=== PATIENT | male | born 1945 | race Caucasian/White ===

== ENCOUNTER 2018-06-06 08:50 | Day surgery (SDC) | payer OTHER, BC ==
[2018-06-06] MEDS ORDERED: NA CHLORIDE 0.9% 1,000 ML ONE (09:21)
[2018-06-06] MEDS ORDERED: FENTANYL CITR 100 MCG/2 ML ONE (10:02)
[2018-06-06] MEDS ORDERED: MIDAZOLAM HCL 2 MG/2 ML INJ ONE (10:02)
[2018-06-06] MEDS ORDERED: NALOXONE 0.4 MG/ML VIAL ONE (10:03)
[2018-06-06] MEDS ORDERED: FLUMAZENIL 0.1 MG/ML (5 mL VIAL) IV ONE (10:03)
--- NOTE | 2018-06-06 11:24 | RAD REPORT ---
EXAM DESCRIPTION: CT - Abdomen Wo Contrast CLINICAL HISTORY: KIDNEY DISEASE Abdominal pain COMPARISON: Renal Ultrasound-Complete dated 04/05/[address] scans are performed using dose optimization technique as appropriate and may includ e automated exposure control or mA/KV adjustment according to patient size. FINDINGS: The patient was referred for CT-guided renal biopsy. Informed consent was obtained and yasmany e-out was performed. The patient was placed on the CT gantry and pre-procedure imaging demonstrated a suitable window to access the cortex of the left kidney inferiorly. However, the patient's blood pre ssure was noted to be elevated at 200+ systolic. Due to this, the procedure was deferred under better blood pressure control could be obtained. The lower lung jin are clear. Noncontrast assessment of the included portions of the liver parench yma demonstrates no mass or biliary dilatation. Cholelithiasis. The spleen and adrenal glands are nor mal. The right kidney is quite atrophic. The left kidney is mildly hypertrophic with a prominent cyst in t he inferior pole measuring 4 cm. The pancreas shows no evidence of ductal dilatation or mass. No bulky intra- abdominal adenopathy or free fluid collections. Aortic atherosclerosis is seen. No lytic or blastic bone lesion. Small fat co ntaining umbilical hernia. No worrisome bone finding. IMPRESSION: Pre-procedure planning CT was performed for left renal nonfocal biopsy. As detailed abov e the procedure was deferred for the time being due to significant systolic hypertension. This was di scussed with Dr. Hoyt. Cholelithiasis. Atrophic right kidney with hypertrophic left kidney. Prominent 4 cm inferior left renal cyst.
== END 2018-06-06 11:40 | disposition home or self-care (01) ==
LOC: DS 08:50
PROVIDERS: ATTEND Internal Medicine
DX: N18.4 Chronic kidney disease, stage 4 (severe) (principal); N04.9 Nephrotic syndrome with unspecified morphologic changes; Z53.09 Procedure and treatment not carried out because of other contraindication; Z01.818 Encounter for other preprocedural examination
CPT/HCPCS: 74150; J2250; J3010; J7030; J2310